=== PATIENT | female | born 1945 | race Caucasian/White ===

== ENCOUNTER → 2017-12-11 | Outpatient (CLI) | payer OTHER ==
[~2017-12-11] MED LIST: APAP500; APAP500 PO; ARIMIDEX PO; CIPROFLOXACIN500 M3 PO; CLONAZEPAM PO; DIAZEPAM 5 MG5 M1 PO; FOLIC ACID PO; IBUPROFEN; IBUPROFEN 600600 M1 PO; IRON; KEFLEX500 MG PO; LASIX 20 MG TAB20 MG PO; MEDROLDOSEPACK PO; MYLANTA 12 OZ355 M1 PO; ONDANSETRON ODT4 MG PO; PEPCID20 MG PO; PEPCID40 MG PO; PERCOCET 5-3251 EACH PO; PREDNISONE 10 M10 M1 PO; PROTONIX40 M2; PROTONIX40 M2 PO; TAMSULOSIN HCL0.4 M1 PO; VITAMIN B12 PO; [UNRECOGNIZED DRUG - REMARK]
== END ==
LOC: M.RAD 08:51
DX: M85.88 Other specified disorders of bone density and structure, other site (principal); Z78.0 Asymptomatic menopausal state

== ENCOUNTER → 2018-03-12 | Outpatient (CLI) | payer OTHER | LOC: M.ULTRA 08:34 | DX: D18.03 Hemangioma of intra-abdominal structures (principal); D50.9 Iron deficiency anemia, unspecified; R16.0 Hepatomegaly, not elsewhere classified; C50.919 Malignant neoplasm of unspecified site of unspecified female breast; G43.909 Migraine, unspecified, not intractable, without status migrainosus; M85.89 Other specified disorders of bone density and structure, multiple sites; Z90.710 Acquired absence of both cervix and uterus ==

== ENCOUNTER → 2018-05-01 | Outpatient (CLI) | payer OTHER | LOC: M.CT 09:26 | DX: K76.89 Other specified diseases of liver (principal); K76.9 Liver disease, unspecified; Z85.3 Personal history of malignant neoplasm of breast; Z79.899 Other long term (current) drug therapy; Z90.710 Acquired absence of both cervix and uterus ==

== ENCOUNTER → 2019-02-02 | Outpatient (CLI) | payer OTHER | LOC: M.RAD 10:33 | DX: K44.9 Diaphragmatic hernia without obstruction or gangrene (principal); M48.54XA Collapsed vertebra, not elsewhere classified, thoracic region, initial encounter for fracture ==

== ENCOUNTER 2019-02-16 06:26 | Emergency (ER) | payer OTHER ==
[~2019-02-16] VITALS: Ht 157.5 cm; Wt 60.1 kg
[2019-02-16] MEDS ORDERED: PROTONIX40 M1 PO (06:38)
[2019-02-16] MEDS ORDERED: B12INJ IM (06:39)
[2019-02-16] MEDS ORDERED: TUMS PO (06:39)
[2019-02-16] MEDS ORDERED: CLONAZEPAM 1 MG1 M1 PO (06:40)
[2019-02-16 07:33] LABS: HEMATOCRIT 37.6 % (37.0-47.0); HEMOGLOBIN 12.5 gm/dL (12.0-15.0); MCH 29.9 pg (26.0-34.0); MCHC 33.2 g/dL (28.0-37.0); MCV 90.1 fL (80.0-100.0); MPV 7.7 fl. (7.2-11.1); NUCLEATED RBCS 0 /100WBC; PLATELET COUNT* 333 thou/uL (150-400); RBC 4.18 mil/uL (4.20-5.00); RDW-CV 15.7 % (10.5-14.5); WBC 11.2 thou/uL (4.0-11.0)
[2019-02-16 07:46] LABS: CALCIUM 9.5 mg/dL (8.5-10.1); CREATININE 0.6 mg/dL (0.6-1.3)
[2019-02-16 07:51] LABS: ALBUMIN 2.9 g/dL (3.4-5.0); TOTAL PROTEIN 6.5 g/dL (6.4-8.2)
[2019-02-16 07:59] LABS: ABSOLUTE MONOCYTES 0.2 thou/uL (0.0-1.2); METAMYELOCYTES 3 %; PLATELET ESTIMATE ADEQUATE
[2019-02-16] MEDS ORDERED: KEFLEX500 M1 PO (08:19)
[2019-02-16] MEDS ORDERED: NORCO 5-325 TA1 EAC1 PO (08:19)
[2019-02-16] MEDS ORDERED: COLACE100 MG PO (08:19)
[2019-02-16 08:46] VITALS: BP 127/59
== END 2019-02-16 08:48 | disposition home or self-care (01) ==
LOC: M.ERS 06:26
PROVIDERS: Personal Emergency Response Attendant
DX: K61.1 Rectal abscess (principal); K21.9 Gastro-esophageal reflux disease without esophagitis; Z88.8 Allergy status to other drugs, medicaments and biological substances; Z90.710 Acquired absence of both cervix and uterus; Z86.2 Personal history of diseases of the blood and blood-forming organs and certain disorders involving the immune mechanism; Z90.13 Acquired absence of bilateral breasts and nipples; Z85.3 Personal history of malignant neoplasm of breast

== ENCOUNTER → 2019-06-07 | Day surgery (SDC) | payer OTHER ==
[~2019-06-07] MED LIST changes: +B12INJ IM; +CALCIUM500 MG PO; +CLONAZEPAM 1 MG1 M1 PO; +COLACE100 MG PO; +KEFLEX500 M1 PO; +NORCO 5-325 TA1 EAC1 PO; +PROTONIX40 M1 PO; +TUMS PO
[2019-06-07 10:24] LABS: HEMATOCRIT 41.1 % (37.0-47.0); HEMOGLOBIN 13.5 gm/dL (12.0-15.0); MCH 29.7 pg (26.0-34.0); MCV 90.1 fL (80.0-100.0); MPV 7.3 fl. (7.2-11.1); RBC 4.56 mil/uL (4.20-5.00); RDW-CV 14.4 % (10.5-14.5); WBC 4.8 thou/uL (4.0-11.0)
[2019-06-07 10:39] LABS: CREATININE 0.7 mg/dL (0.6-1.3); POTASSIUM 3.2 mmol/L (3.5-5.1)
[2019-06-07 10:43] LABS: ALBUMIN 3.6 g/dL (3.4-5.0); TOTAL BILIRUBIN 0.6 mg/dL (<0.1-1.0); TOTAL PROTEIN 6.9 g/dL (6.4-8.2)
--- NOTE | 2019-06-07 18:06 | EKG ---
[place] [address] ELECTROCARDIOGRAM REPORT Name: GORDON GAO Room: [facility]#: [id number] Admission: 06/07/19 Attend Phys: Wesly Scott Discharge: Date of : 41 Report #: [id number] THIS REPORT FOR: //name// [facility] Test Date: 2019-06-07 Test Time: 10:22:15 Pat Name: GORDON GAO Department: Room: Gender: F Resource Technician: : 1945 Requested By: Wesly Scott Order Number: [id number] Yonatan MD: Doni Cormier Measurements Intervals [place] Rate: 64 P: 44 WA: 165 QRS: -35 QRSD: 151 T: 115 QT: 465 QTc: 480 Interpretive Statements Sinus rhythm Left bundle branch block Compared to ECG 03/01/2013 09:11:41 Left bundle-branch block now present Sinus bradycardia no longer present Electronically Signed On 06-07-2019 18:06:29 CDT by Doni Cormier [email or web address] <ELECTRONICALLY SIGNED> By: Doni Cormier MD, [facility] 06/07/19 1806 1022 102 Doni Cormier MD, FAC /EPI
--- NOTE | 2019-06-09 18:06 | PATH ---
[address] [address] PATHOLOGY RPT PROCEDURE Name: KRISTIN FRANKLIN Room: [facility]#: [id number] Admission: 06/07/19 Date of : 41 Discharge: Report #: [id number] Path Case #: [id number] [facility] Accession Number: [id number] . 01 Material submitted: . anus - ANAL MASS . 01 Clinical history: . Perirectal abscess . 02 Diagnosis: Anal mass: - Benign squamous fibroepithelial polyp with erosion, prominent pseudoepitheliomatous hyperplasia, vascular ectasia and fibrosis. (PA:pit; 06/09/2019) QTP 06/09/2019 1512 Local . 02 Electronically signed: . Samm Poe MD, Pathologist NPI- [id number] . 01 Gross description: . The specimen is received in formalin, labeled "Kristin Franklin, anal mass". Received are two segments of epithelial covered tissue measuring 0.9 x 0.6 x 0.4 and 2.1 x 1.6 x 1.0 cm in greatest dimensions. The surgical margins are inked. The smaller segment displays a raised white-gallagher lesion measuring 0.7 x 0.6 x 0.4 cm. This segment is bisected and entirely submitted in cassette A1. The larger segment displays no grossly distinct nodules or lesions. Sectioning reveals pale gallagher to white cut surfaces. This segment is bisected and entirely submitted in cassette A2. (CAA; 06/08/2019) QAC/QA 06/08/2019 0858 Local . 02 Pathologist provided ICD-10: K64.4 . 02 CPT . 821165 Specimen Comment: A courtesy copy of this report has been sent to [phone] Specimen Comment: Report sent to Performed at: [address], [place], [place] [id number] MD Jesu Echavarria MD Phone: [phone] Performed at: [facility] [address], [place], [place] [id number] MD Samm Poe MD Phone: [phone]
--- NOTE | 2019-06-11 08:40 | OP ---
[facility] [address] [place] [address] OPERATIVE REPORT Name: GORDON GAO Room: [facility]#: [id number] Admission: 06/07/19 Attend Phys: Wesly Scott Discharge: Date of : 41 Report #: [id number] THIS REPORT FOR: //name// CC: Doni Scott DATE OF SERVICE: 06/07/2019 PREOPERATIVE DIAGNOSIS: 1. Perirectal abscess. POSTOPERATIVE DIAGNOSES: 1. Perirectal abscess. 2. Anal masses. OPERATION: 1. Incision and drainage of perirectal abscess. 2. Excision of anal mass. SURGEON: Wesly Scott MD ANESTHESIA: General. ESTIMATED BLOOD LOSS: Minimal. SPECIMEN: Anal mass. DESCRIPTION OF PROCEDURE: After informed consent was obtained, the patient was brought to the operating room and placed supine. SCDs were placed and working, preoperative antibiotics were administered, general anesthesia was induced. The patient was placed in dorsal lithotomy position and the area was then prepped and draped in the usual sterile fashion with Betadine. Digital rectal exam was performed. This did not demonstrate any deep anal masses. However, she did have a 0.5 x 0.5 cm piece of what looked to be a protruding piece of mucosa. I therefore elected to excise this with cautery. It was excised at its base. There was good hemostasis. I then made a 1-cm incision in the right perianal area approximately at the level of the anal verge. Loculations were broken up with hemostat. The area was then copiously irrigated. It was then packed with iodoform gauze. Sterile dressings were applied. COMPLICATIONS: None. [facility] [address] [place] [address] OPERATIVE REPORT Name: GORDON GAO Room: [facility]#: [id number] Admission: 06/07/19 Attend Phys: Wesly Scott Discharge: Date of : 41 Report #: [id number] DISPOSITION: The patient was taken to recovery in satisfactory condition. <ELECTRONICALLY SIGNED> By: Wesly Scott MD 06/11/19 0840 1307 [id number] Scott MD /nt
== END | disposition home or self-care (01) ==
LOC: M.SUR 08:02
PROVIDERS: Surgery
DX: K61.1 Rectal abscess (principal); K64.4 Residual hemorrhoidal skin tags; Z98.890 Other specified postprocedural states; Z79.899 Other long term (current) drug therapy; Z88.8 Allergy status to other drugs, medicaments and biological substances

== ENCOUNTER → 2020-05-18 | Outpatient (CLI) | payer MEDICARE | LOC: M.RAD 11:07 | PROVIDERS: ATTEND Registered Nurse Diabetes Educator | DX: M81.0 Age-related osteoporosis without current pathological fracture (principal); Z78.0 Asymptomatic menopausal state ==